=== PATIENT | female | born 1995 | race Caucasian/White ===

== ENCOUNTER 2024-08-21 16:13 | Emergency (ER) | payer OTHER, SELFPAY ==
[2024-08-21 16:17] VITALS: BP 109/74
--- NOTE | 2024-08-21 16:48 | ED.GENMED ---
History of Present Illness
General
Chief Complaint: Abdominal Pain
Time Seen by Provider: 08/21/24 16:30
History of Present Illness
History of Present Illness:
28-year-old female presents to the emergency department for evaluation of periumbilical abdominal pain. She is 2 months status post ex lap due to traumatic injuries resulting in a liver laceration, she was also at that time and emergency
was performed however with ultimate demise. She notes over the past 2 days she is having increasing pain to the lower third of the incision site. No fevers or chills. Denies any vomiting or diarrhea. Has had intermittent vaginal
bleeding over the past several days but was told this may be normal.
Past History
Past History
ED Past Medical History: None and Asthma
ED Past Surgical History: None
Social History
Tobacco: Non-smoker
Alcohol: Binge drinker
Drug: Marijuana
Employment: Student
Review of Systems
Review of Systems
Allergies reviewed?: Yes
All Other Systems: ROS reviewed and negative except as documented in HPI and ROS
Phy Exam
Physical Exam
Physical Exam:
GEN: Well appearing, NAD, WDWN
HEENT: Oral mucosa moist, no scleral icterus
Cardiac: Regular rate
Lung: No respiratory distress, no tachypnea
Abdomen: Midline laparotomy incision well-approximated with no dehiscence, there is mild erythema and induration to the middle/lower third of the incision site that is exquisitely tender to palpation. Remainder of abdomen is soft and grossly
nontender
MSK: No gross deformity or injuries
Skin: Good color, no pallor or jaundice, no rashes
Neuro: AO x3, moves all extremities freely
Psych: Calm, cooperative
Course
Orders/Labs/Results
Orders:
Orders
08/21/24 16:47
CT Abd/Pel (IV only)-DH only Urgent
Comment:
Reason For Exam: abd pain, 8 wk s/p laparotomy
HYDROmorphone [Dilaudid] 0.5 mg IV NOW STA
08/21/24 17:04
Lactic Acid Q4H
Comment: CANCEL 2nd LACTIC ACID IF 1st LACTIC ACID IS LESS THAN 2
08/21/24 17:05
Complete Blood Count/With Diff Urgent
Comprehensive Metabolic Panel Urgent
HCG, Serum Qualitative Screen Urgent
Comment: ADD ON
08/21/24 17:29
Add On- LAB Urgent
Tests Added?: hcg qual
08/21/24 18:57
Amoxicillin 875 mg/Clav 125 mg [Augmentin 875 mg/125 mg] 1 tablet PO NOW STA
Abnormal Lab Results
08/21/24
17:05
Absolute Monos (auto) 0.7 H 10^3/uL
(0.1-0.6)
Monocytes % 9.6 H %
(1.7-9.3)
Glucose 108 H mg/dl
(70-99)
Calcium 10.4 H mg/dl
(8.4-10.2)
08/21/24 17:05
08/21/24 17:05
Vital Signs
Initial and Last Documented VS:
Initial Vital Signs
Temp Pulse Resp BP Pulse Ox
98.6 F 60 16 109/74 97
08/21/24 16:17 08/21/24 16:17 08/21/24 16:17 08/21/24 16:17 08/21/24 16:17
Last Documented Vital Signs
Temp Pulse Resp BP Pulse Ox
98.6 F 60 16 109/74 97
08/21/24 16:17 08/21/24 16:17 08/21/24 16:17 08/21/24 16:17 08/21/24 16:17
MDM/Problems Addressed
MDM/Problems Addressed:
Labs and imaging benign however clinically this is suspicious for developing incision site cellulitis. Although radiology report suggest there is no definitive fluid collection there does appear to be moderate stranding at the site which is in
keeping with localized cellulitis. Will start the patient on oral antibiotics, close home observation recommended as follow-up imaging may be required if worsening
*Critical Care Note
Total Time (30-74mins, 75-104mins- exclusive of procedures): Not Applicable
ED Attending Note
-
Portions of this chart may have been created with voice recognition software.� Occasional wrong word or��sound alike� substitutions may have occurred due to the inherent limitations of voice recognition software.
Discharge Plan
Departure
Patient Disposition: Home (Routine Discharge)
Date of Disposition: 08/21/24
Time of Disposition: 18:57
Patient with high blood pressure during this ER visit?: No
Discharge Problem:
Abdominal wall cellulitis
Instructions: Cellulitis (skin infection) in adults - ED discharge instructions
Prescriptions:
New
amoxicillin-pot clavulanate 875-125 mg tablet
1 tab PO BID Qty: 14 0RF
Referrals:
NONE,* [Family Provider] -
Interventions
Interventions:
*Risk Screen - Suicide Last Done: 08/21/24 17:30
*General Assessment Last Done: 08/21/24 17:30
*Neglect/Abuse Screening Last Done: 08/21/24 17:30
*Nursing Disposition Last Done: 08/21/24 19:09
SS-Xhzihg-Jgtxnrbjmo Assessment Last Done: 08/21/24 17:30
Discharge Date and Time
Discharge Date/Time: 08/21/24 19:31
Print Language: YI
[2024-08-21] MEDS: DILAUDID 0.5 MG IV (17:07)
[2024-08-21 17:13] LABS: % Basophils 0.8 % (0-2); % Eosinophils 2.5 % (0-6); % Immature Granulocytes 0.3 % (0-0.5); % Lymphocytes 25.9 % (20.5-51.1); % Monocytes 9.6 % (1.7-9.3); % Neutrophils 60.9 % (42.2-75.2); Absolute Basophils 0.1 10^3/uL (0-0.2); Absolute Eosinophils 0.2 10^3/uL (0-0.7); Absolute Lymphocytes 1.9 10^3/uL (1.2-3.4); Absolute Monocytes 0.7 10^3/uL (0.1-0.6); Absolute Neutrophils 4.5 10^3/uL (1.4-6.5); Hemoglobin 12.4 g/dL (12.0-16.0); Mean Corp Hgb Conc. 33.5 g/dL (33.0-37.0); Mean Corpuscular Hgb 28.1 pg (27.0-31.0); Mean Corpuscular Volume 83.9 fL (81.0-99.0); Mean Platelet Volume 8.9 fL (7.4-10.4); Nucleated Red Blood Cells % 0 %; Platelet Count 257 10^3/uL (130-400); Red Blood Cell Count 4.41 10^6/uL (4.20-5.40); Red Cell Dist. Width 13.6 % (11.5-14.5); White Blood Cell Count 7.3 10^3/uL (4.8-10.8)
[2024-08-21 17:14] VITALS: BMI 20.9
[2024-08-21 17:25] LABS: Lactic Acid 0.7 mmol/L (0.7-2.0)
[2024-08-21 17:36] LABS: ALT (SGPT) 16 U/L (0-35); AST (SGOT) 20 U/L (14-36); Albumin 4.4 g/dl (3.5-5.0); Alkaline Phosphatase 117 U/L (38-126); Blood Urea Nitrogen 16 mg/dl (7-17); Calcium 10.4 mg/dl (8.4-10.2); Carbon Dioxide 27 mmol/L (22-30); Chloride 99 mmol/L (98-107); Estimated Creatinine Clearance 93 ml/min; Glucose 108 mg/dl (70-99); HCG, Serum Qualitative Screen Negative; Potassium 4.1 mmol/L (3.5-5.1); Sodium 138 mmol/L (135-145); Total Bilirubin 0.5 mg/dl (0.2-1.3); Total Protein 7.7 g/dl (6.3-8.2); eGFR > 60.00
[2024-08-21] MEDS: AUGMENTIN 875 MG/125 MG 1 TABLET PO (19:03)
== END 2024-08-21 19:31 | disposition home or self-care (01) ==
LOC: EMR 16:13
PROVIDERS: Physician Assistant; EMERGENCY PHYSICIAN Emergency Medicine
DX: L03.311 Cellulitis of abdominal wall (principal)
CPT/HCPCS: 99285; 96374; 74177; 80053; 83605; 84703; 85025; Q9967